=== PATIENT | female | born 1960 | race Caucasian/White ===

== ENCOUNTER 2025-05-16 09:36 | Emergency (ER) | payer BC | END 2025-05-16 14:00 | disposition home or self-care (01) | LOC: JD.ED 09:36 | DX: J40 Bronchitis, not specified as acute or chronic (principal); J21.9 Acute bronchiolitis, unspecified; Z88.2 Allergy status to sulfonamides | CPT/HCPCS: 71045; 87428; 94640; 99285; J3535; J7620; A9270-GY ==